=== PATIENT | male | born 1985 | race African-American/Black ===

== ENCOUNTER 2019-06-23 09:40 | Inpatient (IN) | payer MEDICAID ==
[~2019-06-23] VITALS: Ht 167.6 cm; Wt 54.9 kg
[~2019-06-23 09:40] MED LIST: CLON1PAT11 TD; FOLI-43 PO; KEPP500 PO; LORA-250 PO; MULT-1116 PO; OMEP20CA4 PO; QUET25TA PO; THIA100T13 PO
[2019-06-23] MEDS ORDERED: LORAZEPAM 2MG/ML CPJ IV ONE (10:00)
[2019-06-23] MEDS ORDERED: CHLORDIAZEPOXIDE 25MG CAPSULE PO ONE (10:00)
[2019-06-23 10:35] LABS: BASOPHILS % 0.3 % (0.0-2.0); EOSINOPHILS % 0.1 % (0.0-5.0); HEMATOCRIT. 27.6 % (42.0-52.0); HEMOGLOBIN. 9.2 g/dL (14.0-18.0); LYMPHOCYTES % 12.1 % (20.0-50.0); MEAN CORPUSCULAR VOLUME 90.5 fL (80.0-94.0); MEAN PLATELET VOLUME 10.1 fl (7.4-10.4); MONOCYTES % 4.9 % (2.0-8.0); NEUTROPHILS % 82.6 % (40.0-76.0); PLATELET 68 x1000/uL (130-400); RED BLOOD CELL COUNT 3.05 mill/uL (4.7-6.1); RED CELL DISTRIBUTION WIDTH 20.1 % (11.6-14.6)
[2019-06-23 10:40] LABS: CHLORIDE 103 mEq/L (98-107)
[2019-06-23 10:45] LABS: ETHANOL BLOOD 254 mg/dL
[2019-06-23] MEDS ORDERED: BACITRACIN 15GM TUBE TOP ONE (11:45)
[2019-06-23] MEDS ORDERED: BACITRACIN ZINC OINT UDPKT TOP NR (12:00)
[2019-06-23] MEDS ORDERED: KETOROLAC 15MG/ML VIAL IV PRN (16:00)
[2019-06-23] MEDS ORDERED: ZOLPIDEM TARTRATE 5MG TABLET PO PRN (16:00)
[2019-06-23] MEDS ORDERED: NITROGLYCERIN 0.4MG TABLET SL SL PRN (16:00)
[2019-06-23] MEDS ORDERED: GUAIFENESIN 200MG/10ML SUGAR FREE UDC PO PRN (16:00)
[2019-06-23] MEDS ORDERED: MAGNESIUM/ALUMINUM HYDROXIDE/SIMETHICONE 30ML UDC PO PRN (16:00)
[2019-06-23] MEDS ORDERED: CLONIDINE 0.1MG TABLET PO PRN (16:00)
[2019-06-23] MEDS ORDERED: ONDANSETRON HCL 4MG/2ML INJ IV PRN (16:00)
[2019-06-23] MEDS ORDERED: DOCUSATE SODIUM 100MG CAPSULE PO PRN (16:00)
[2019-06-23] MEDS ORDERED: ACETAMINOPHEN 325MG TABLET PO PRN ×2 (16:00)
[2019-06-23 16:40] LABS: TOTAL IRON BINDING CAPACITY 311 ug/dL (250-450)
[2019-06-23] MEDS ORDERED: THIAMINE HCL 100MG TABLET PO NR (16:45)
[2019-06-23] MEDS ORDERED: MVI, ADULT NO.1 10 ML, FOLIC ACID 1 MG in SODIUM CHLORIDE 0.9% 1,000 ML IV SCH ×3 (17:00)
[2019-06-23] MEDS: LORAZEPAM 2MG/ML CPJ IV PRN (18:27)
[2019-06-23] MEDS: CHLORDIAZEPOXIDE 25MG CAPSULE PO SCH (18:50)
[2019-06-23] MEDS ORDERED: FAMOTIDINE 20MG TABLET PO SCH (21:00)
[2019-06-23] MEDS: PHENYTOIN SODIUM EXTENDED 100MG CAPSULE PO SCH (21:45)
[2019-06-23] MEDS: ASCORBIC ACID 500 MG TABLET PO SCH (21:45)
[2019-06-23] MEDS: GABAPENTIN 100MG CAPSULE PO SCH (22:15)
[2019-06-24] VITALS: BP 125/79
[2019-06-24] MEDS ORDERED: PHEN-434 MT (00:09)
[2019-06-24 00:21] VITALS: BP 125/79
[2019-06-24] MEDS ORDERED: CHLORDIAZEPOXIDE 25MG CAPSULE PO SCH (02:00)
[2019-06-24] MEDS: CHLORDIAZEPOXIDE 25MG CAPSULE PO SCH ×2 (02:52→11:12)
[2019-06-24 04:00] VITALS: BP 108/61
[2019-06-24] MEDS: GABAPENTIN 100MG CAPSULE PO SCH ×3 (06:29→21:39)
[2019-06-24 06:42] LABS: MEAN CORPUSCULAR HEMOGLOBIN 29.8 pg (28.0-32.0); MEAN CORPUSCULAR VOLUME 89.2 fL (80.0-94.0); MEAN PLATELET VOLUME 9.5 fl (7.4-10.4); RED BLOOD CELL COUNT 2.29 mill/uL (4.7-6.1); RED CELL DISTRIBUTION WIDTH 20.1 % (11.6-14.6)
[2019-06-24 07:16] LABS: HEMATOCRIT. 20.5 % (42.0-52.0); HEMOGLOBIN. 6.8 g/dL (14.0-18.0)
[2019-06-24 07:17] LABS: PLATELET 44 x1000/uL (130-400)
[2019-06-24 07:56] LABS: CHLORIDE 98 mEq/L (98-107)
[2019-06-24 08:06] LABS: PHOSPHORUS 2.1 mg/dL (2.5-4.9)
[2019-06-24 09:08] LABS: NUCLEATED RED BLOOD CELLS 1 /100 WBC; PLATELET ESTIMATE MARKEDLY DECREASED
[2019-06-24] MEDS: ASCORBIC ACID 500 MG TABLET PO SCH ×2 (11:12→21:40)
[2019-06-24] MEDS: PANTOPRAZOLE SODIUM 40 MG/VIAL IV SCH ×2 (11:12→21:39)
[2019-06-24] MEDS: DEXT 5%/0.9% NACL 1,000 ML IV SCH ×2 (11:14→23:43)
[2019-06-24] MEDS: ZINC SULFATE 220 MG ( 50 ) CAPSULE PO SCH (11:17)
[2019-06-24 12:00] VITALS: BP 123/83
[2019-06-24] MEDS ORDERED: OCTREOTIDE ACETATE 50 MCG/ML 1ML IV SCH (12:00)
[2019-06-24 12:35] LABS: HEPATITIS B SURFACE ANTIGEN NEGATIVE
[2019-06-24] MEDS: LORAZEPAM 2MG/ML CPJ IV PRN ×2 (12:49→17:25)
[2019-06-24] MEDS ORDERED: POTASSIUM PHOS,M-BASIC-D-BASIC 15 MMOL in DEXT 5% WATER 245 ML IV SCH (13:00)
[2019-06-24] MEDS ORDERED: MAGNESIUM 2 G PREMIX 50 ML IV SCH (13:00)
[2019-06-24 13:05] LABS: HEPATITIS A AB IGM NEGATIVE (NEGATIVE)
[2019-06-24] MEDS: OCTREOTIDE 1,000 MCG in SODIUM CHLORIDE 0.9% 98 ML IV SCH (13:40)
[2019-06-24 14:27] LABS: HEMATOCRIT 24.6 % (42.0-52.0); HEMOGLOBIN 8.1 g/dL (14.0-18.0); MEAN CORPUSCULAR HEMOGLOBIN 29.8 pg (28.0-32.0); MEAN CORPUSCULAR VOLUME 90.2 fL (80.0-94.0); PLATELET 56 x1000/uL (130-400); RED BLOOD CELL COUNT 2.72 mill/uL (4.7-6.1); RED CELL DISTRIBUTION WIDTH 20.3 % (11.6-14.6)
[2019-06-24 16:00] VITALS: BP 128/80
[2019-06-24 16:02] LABS: HEMATOCRIT 24.1 % (42.0-52.0); HEMOGLOBIN 7.9 g/dL (14.0-18.0)
[2019-06-24] MEDS ORDERED: MIDAZOLAM HCL 5 MG/5 ML VIAL ONE (16:07)
[2019-06-24] MEDS ORDERED: PROPOFOL 200MG/20ML VIAL IV ONE (16:07)
[2019-06-24] MEDS ORDERED: SUCCINYLCHOLINE CHLORIDE 200MG/10ML IV ONE (16:09)
[2019-06-24] MEDS ORDERED: LORAZEPAM 2MG/ML CPJ IV PRN ×2 (18:15→20:20)
[2019-06-24 20:00] VITALS: BP 135/97
[2019-06-24] MEDS: PHENYTOIN SODIUM EXTENDED 100MG CAPSULE PO SCH (21:39)
[2019-06-25] VITALS (8 sets, daily range): BP systolic 111–150; BP diastolic 75–89
[2019-06-25 01:38] LABS: MEAN CORPUSCULAR HEMOGLOBIN 29.7 pg (28.0-32.0); MEAN CORPUSCULAR VOLUME 89.8 fL (80.0-94.0); PLATELET 53 x1000/uL (130-400); RED BLOOD CELL COUNT 2.31 mill/uL (4.7-6.1); RED CELL DISTRIBUTION WIDTH 20.2 % (11.6-14.6)
[2019-06-25 01:45] LABS: HEMATOCRIT 20.8 % (42.0-52.0); HEMOGLOBIN 6.9 g/dL (14.0-18.0)
[2019-06-25] MEDS: GABAPENTIN 100MG CAPSULE PO SCH ×3 (05:01→21:20)
[2019-06-25] MEDS: ZINC SULFATE 220 MG ( 50 ) CAPSULE PO SCH (09:31)
[2019-06-25] MEDS: ASCORBIC ACID 500 MG TABLET PO SCH ×2 (09:31→21:20)
[2019-06-25] MEDS: PANTOPRAZOLE SODIUM 40 MG/VIAL IV SCH (09:32)
[2019-06-25] MEDS: OCTREOTIDE 1,000 MCG in SODIUM CHLORIDE 0.9% 98 ML IV SCH (09:32)
[2019-06-25 09:42] LABS: CHLORIDE 100 mEq/L (98-107)
[2019-06-25 09:46] LABS: BASOPHILS % 0.3 % (0.0-2.0); EOSINOPHILS % 1.7 % (0.0-5.0); HEMATOCRIT. 26.4 % (42.0-52.0); HEMOGLOBIN. 8.7 g/dL (14.0-18.0); LYMPHOCYTES % 9.6 % (20.0-50.0); MEAN CORPUSCULAR HEMOGLOBIN 30.4 pg (28.0-32.0); MEAN CORPUSCULAR VOLUME 91.7 fL (80.0-94.0); MEAN PLATELET VOLUME 10.6 fl (7.4-10.4); MONOCYTES % 11.1 % (2.0-8.0); NEUTROPHILS % 77.3 % (40.0-76.0); PLATELET 63 x1000/uL (130-400); RED BLOOD CELL COUNT 2.88 mill/uL (4.7-6.1); RED CELL DISTRIBUTION WIDTH 18.7 % (11.6-14.6)
[2019-06-25 09:50] LABS: PHOSPHORUS 3.6 mg/dL (2.5-4.9)
[2019-06-25] MEDS: DEXT 5%/0.9% NACL 1,000 ML IV SCH (15:32)
[2019-06-25 16:08] LABS: HEMOGLOBIN 8.5 g/dL (14.0-18.0); MEAN CORPUSCULAR HEMOGLOBIN 30.7 pg (28.0-32.0); MEAN CORPUSCULAR VOLUME 90.1 fL (80.0-94.0); PLATELET 67 x1000/uL (130-400); RED BLOOD CELL COUNT 2.77 mill/uL (4.7-6.1); RED CELL DISTRIBUTION WIDTH 18.5 % (11.6-14.6)
[2019-06-25] MEDS: CHLORDIAZEPOXIDE 25MG CAPSULE PO SCH ×2 (17:13→23:01)
[2019-06-25] MEDS: PHENYTOIN SODIUM EXTENDED 100MG CAPSULE PO SCH (21:20)
[2019-06-26] VITALS: BP 110/72
[2019-06-26] MEDS: DEXT 5%/0.9% NACL 1,000 ML IV SCH (02:03)
[2019-06-26 04:00] VITALS: BP 110/71
[2019-06-26] MEDS: GABAPENTIN 100MG CAPSULE PO SCH (05:08)
[2019-06-26] MEDS: CHLORDIAZEPOXIDE 25MG CAPSULE PO SCH (05:08)
[2019-06-26] MEDS: OCTREOTIDE 1,000 MCG in SODIUM CHLORIDE 0.9% 98 ML IV SCH (05:08)
[2019-06-26 06:55] LABS: HEMATOCRIT 25.6 % (42.0-52.0); HEMOGLOBIN 8.6 g/dL (14.0-18.0); MEAN CORPUSCULAR HEMOGLOBIN 30.3 pg (28.0-32.0); MEAN CORPUSCULAR VOLUME 90.5 fL (80.0-94.0); PLATELET 94 x1000/uL (130-400); RED BLOOD CELL COUNT 2.82 mill/uL (4.7-6.1); RED CELL DISTRIBUTION WIDTH 18.7 % (11.6-14.6)
[2019-06-26 07:47] LABS: CHLORIDE 98 mEq/L (98-107)
[2019-06-26 08:00] VITALS: BP 111/78
[2019-06-26] MEDS ORDERED: POTASSIUM CHLORIDE 20MEQ/PACKET PO SCH (09:00)
[2019-06-26] MEDS: ASCORBIC ACID 500 MG TABLET PO SCH (09:00)
[2019-06-26] MEDS: ZINC SULFATE 220 MG ( 50 ) CAPSULE PO SCH (09:00)
[2019-06-26 10:38] VITALS: BP 111/78
[2019-06-26] MEDS ORDERED: CHLORDIAZEPOXIDE 10MG CAPSULE PO SCH (12:00)
== END 2019-06-26 11:41 | disposition home or self-care (01) | DRG 241 ==
LOC: ER 09:40 → 6WST 14:21 → ENRESERV 20:01
PROVIDERS: ADMIT Internal Medicine; ATTEND Internal Medicine
PROC: 0DB68ZX Excision of Stomach, Via Natural or Artificial Opening Endoscopic, Diagnostic (ICD-10-PCS; principal; 2019-06-24)
PROC: 30233N1 Transfusion of Nonautologous Red Blood Cells into Peripheral Vein, Percutaneous Approach (ICD-10-PCS; 2019-06-25)
DX: K29.70 Gastritis, unspecified, without bleeding (principal); D61.818 Other pancytopenia; K92.0 Hematemesis; D69.59 Other secondary thrombocytopenia; S09.90XA Unspecified injury of head, initial encounter; D62 Acute posthemorrhagic anemia; Z78.1 Physical restraint status; K44.9 Diaphragmatic hernia without obstruction or gangrene; K70.9 Alcoholic liver disease, unspecified; E61.1 Iron deficiency; G40.909 Epilepsy, unspecified, not intractable, without status epilepticus; Y90.8 Blood alcohol level of 240 mg/100 ml or more; K76.0 Fatty (change of) liver, not elsewhere classified; S00.01XA Abrasion of scalp, initial encounter; R74.0 Nonspecific elevation of levels of transaminase and lactic acid dehydrogenase [LDH]; I10 Essential (primary) hypertension; F10.239 Alcohol dependence with withdrawal, unspecified
CPT/HCPCS: 36415; 76700; 80048; 80053; 80185; 80320; 82105; 82607; 82746; 83036; 83540; 83550; 83735; 84100; 85014; 85018; 85025; 85027; 86705; 86709; 86803; 86850; 86900; 86920; 87340; 88305; 88312; 88313; 93970; 99285; C9113; J0330; J1885; J2060; J2250; J2354; J2405; J2704; J3475; J3490; J7030; J7042; J7050; J7060; P9016; G0480